=== PATIENT | female | born 1970 | race Caucasian/White ===

== ENCOUNTER 2019-10-25 18:40 | Emergency (ER) | payer OTHER ==
[~2019-10-25] VITALS: Ht 157.5 cm; Wt 72.6 kg
[~2019-10-25 18:40] MED LIST: CEFADROXIL500 MG PO; KETO10TA2 PO
[2019-10-25] MEDS ORDERED: ZOLOFT50 MG (18:57)
[2019-10-25] MEDS ORDERED: WELLBUTRIN XL150 M1 (18:57)
[2019-10-25] MEDS ORDERED: AMLODIPINE BESYL5 MG (18:58)
== END 2019-10-25 19:53 | disposition home or self-care (01) ==
LOC: ER 18:40
DX: S60.371A Other superficial bite of right thumb, initial encounter (principal); W54.0XXA Bitten by dog, initial encounter; Y93.89 Activity, other specified; Y92.89 Other specified places as the place of occurrence of the external cause; Y99.8 Other external cause status